=== PATIENT | male | born 1965 | race Caucasian/White ===

== ENCOUNTER 2019-04-20 17:19 | Inpatient (IN) | payer OTHER ==
[~2019-04-20] VITALS: Ht 180.3 cm; Wt 107.5 kg
[2019-04-20] MEDS ORDERED: HYZAAR 50-12.51 EACH (17:29)
[2019-04-20] MEDS ORDERED: SYNTHROID112 MCG (17:30)
--- NOTE | 2019-04-20 17:31 | NUR ---
PTE REFERIDO POR DR RUSSO REFIERE DIFICULTAD RESPIRATORIA Y FIEBRE DESDE 1 SEMANS SE OWEN S/V Y SE UBICA EN AREQA DE OBSERVACION
--- NOTE | 2019-04-20 19:16 | NUR ---
PACIENTE ALERTA Y ORIENTADO EVALUADO POR EL DR. CAPELLAN SE ORIENTA A PACIENTE SOBRE TRATAMIENTO MEDICO SE EXTRAEN MUESTRAS DE VICTOR MANUEL Y SE ADMINISTRAN MEDICAMENTOS SOUMYA ORDEN MEDICA BAJO MEDIDAS ASEPTICAS.
--- NOTE | 2019-04-20 23:07 | NUR ---
SE RECIBE PACIENTE EN CAMA CON MEDIDAS DE SEGURIDAD, LUCE ALERTA CONSCIENTE Y ORIENTADO X3, PRESENTANDO BUEN PATRON RESPIRATORIO. KYRA DE DOLOR AL MOMENTO. IVFLUIDS PATENTES AREA KYRA DE EDEMA Y ENROJECIMIENTO. EN ESPERA DE SER VISTO EN CONSULTA POR MEDICINA INTERNA.
--- NOTE | 2019-04-21 08:04 | NUR ---
SE RECIB EPTE DLE TURNO ANTERIOR, ALERTA Y ORIENTADO X 3 ESFERAS, EN COMPANIA DE FAMILIAR, EN CAMA NIVEL MAS BAJO, GARCIA DE IDENTIFCACION Y BARANDAS ELEVADAS POR PRECAUCION. SE OBSERVA OCN BUEN PATRON RESPIRATORIO Y PIEL TIBIA AL TACTO. IV PATENTE Y KYRA DE EDEMA O ERITEMA CON 0.9% NSS @80ML/HR. PTE PENDIENTE A CONSULTA CON DR RUSSO. SE MANTIENE BAJO OBSERVACION.
== END 2019-04-29 10:34 | disposition home or self-care (01) | DRG 194 ==
LOC: ER 17:19 → SURH 04-21 08:58 → SEC-K 04-21 08:58 → SURH 04-21 17:29
PROVIDERS: ADMIT Internal Medicine Cardiovascular Disease
PROC: 3E0F7GC Introduction of Other Therapeutic Substance into Respiratory Tract, Via Natural or Artificial Opening (ICD-10-PCS; 2019-04-21)
PROC: 8E0ZXY6 Isolation (ICD-10-PCS; 2019-04-21)
PROC: BB24ZZZ Computerized Tomography (CT Scan) of Bilateral Lungs (ICD-10-PCS; principal; 2019-04-22)
PROC: 4A033R1 Measurement of Arterial Saturation, Peripheral, Percutaneous Approach (ICD-10-PCS; 2019-04-26)
DX: J18.1 Lobar pneumonia, unspecified organism (principal); J44.1 Chronic obstructive pulmonary disease with (acute) exacerbation; J45.41 Moderate persistent asthma with (acute) exacerbation; J98.11 Atelectasis; I10 Essential (primary) hypertension; R09.02 Hypoxemia; E03.8 Other specified hypothyroidism; R31.0 Gross hematuria

== ENCOUNTER 2019-06-18 10:18 | Outpatient (CLI) | payer OTHER ==
[~2019-06-18 10:18] MED LIST: HYZAAR 50-12.51 EACH; SYNTHROID112 MCG
== END 2019-06-18 10:49 | disposition home or self-care (01) ==
LOC: SONOGRAMA 10:18
DX: D21.0 Benign neoplasm of connective and other soft tissue of head, face and neck (principal); R05 Cough

== ENCOUNTER 2021-12-14 09:19 | Outpatient (CLI) | payer OTHER | END 2021-12-14 09:23 | disposition home or self-care (01) | LOC: RAD 09:19 | PROVIDERS: ATTEND Internal Medicine Cardiovascular Disease | DX: J11.1 Influenza due to unidentified influenza virus with other respiratory manifestations (principal); J44.9 Chronic obstructive pulmonary disease, unspecified ==

== ENCOUNTER 2021-12-14 10:12 | Outpatient (CLI) | payer OTHER | END 2021-12-14 10:13 | disposition home or self-care (01) | LOC: LAB 10:12 | PROVIDERS: ATTEND Internal Medicine Cardiovascular Disease | DX: J11.1 Influenza due to unidentified influenza virus with other respiratory manifestations (principal); D04.0 Carcinoma in situ of skin of lip ==

== ENCOUNTER → 2024-07-10 07:01 | Outpatient (CLI) | payer OTHER ==
[2024-07-10 07:32] LABS: HEMATOCRIT 48.6 % (39.0-48.0); HEMOGLOBIN 16.9 g/dL (13-16.00); MEAN CELL VOLUME 89.6 fL (80.0-100.00); MEAN CORPUSCULAR HEMOGLOBIN 31.3 pg (27.00-32.0); MEAN CORPUSCULAR HGB CONC 34.9 g/dl (32.0-36.0); PLATELET COUNT 248 K/uL (150-450); RED BLOOD COUNT 5.42 M/uL (4.00-6.00); RED CELL DISTRIBUTION WIDTH 13.7 % (11.5-14.5)
[2024-07-10 07:42] LABS: URINE APPEARANCE Clear; URINE BILIRRUBIN Negative (NEGATIVE); URINE BLOOD Moderate; URINE COLOR Yellow; URINE GLUCOSE Negative (NEGATIVE); URINE KETONE Negative (NEGATIVE); URINE LEUKOCYTE Negative; URINE NITRATE Negative; URINE PROTEIN Negative (NEGATIVE); URINE UROBILINOGEN 0.2 E.U./dl
[2024-07-10 07:46] LABS: URINE BACTERIA 93.2 uL (0.0-1933); URINE EPITHELIAL CELLS 5.7 uL (0.0-38.8); URINE RBC 35.5 uL (0.0-20.8); URINE WBC 13.7 uL (0.0-23.2)
[2024-07-10 08:09] LABS: URINE CAST 0.15 uL (0.0-1.40)
[2024-07-10 08:26] LABS: ALBUMIN 3.8 gm/dL (3.4-5.0); BILIRUBIN TOTAL 0.62 mg/dL (0.3-1.2); CALCIUM 9.2 mg/dL (8.5-10.1); CREATININE SERUM 1.29 mg/dL (0.70-1.30); GFR 57.01; GLOBULINA 3.6 G/DL (2.4-3.5); POTASSIUM 4.48 mEq/L (3.5-5.1); T4 TOTAL 8.09 UG/DL (4.5-12.1); TOTAL PROTEIN 7.4 gm/dL (6.4-8.2); TSH 2.61 uIU/mL (0.358-3.74)
== END | disposition home or self-care (01) ==
LOC: LAB 07:01
PROVIDERS: ATTEND Internal Medicine Cardiovascular Disease
DX: E11.9 Type 2 diabetes mellitus without complications (principal); E03.9 Hypothyroidism, unspecified; E78.2 Mixed hyperlipidemia; I10 Essential (primary) hypertension

== ENCOUNTER 2024-07-16 15:20 | Outpatient (CLI) | payer OTHER | END 2024-07-16 15:42 | disposition home or self-care (01) | LOC: TOM 15:20 | PROVIDERS: ATTEND Internal Medicine Cardiovascular Disease | DX: I10 Essential (primary) hypertension (principal); R51.9 Headache, unspecified ==

== ENCOUNTER 2024-08-13 13:34 | Outpatient (CLI) | payer OTHER ==
[2024-08-13 13:56] LABS: HEMOGLOBIN 16.7 g/dL (13-16.00); MEAN CELL VOLUME 89.9 fL (80.0-100.00); MEAN CORPUSCULAR HEMOGLOBIN 31.2 pg (27.00-32.0); MEAN CORPUSCULAR HGB CONC 34.7 g/dl (32.0-36.0); PLATELET COUNT 236 K/uL (150-450); RED BLOOD COUNT 5.34 M/uL (4.00-6.00); RED CELL DISTRIBUTION WIDTH 13.8 % (11.5-14.5)
[2024-08-13 14:46] LABS: MYCOPLASMA PNEUMONIAE IGM REACTIVE (NO REACTIVE)
== END 2024-08-13 13:35 | disposition home or self-care (01) ==
LOC: LAB 13:34
PROVIDERS: ATTEND Internal Medicine Cardiovascular Disease
DX: J11.1 Influenza due to unidentified influenza virus with other respiratory manifestations (principal); A49.3 Mycoplasma infection, unspecified site; Z20.822 Contact with and (suspected) exposure to COVID-19

== ENCOUNTER 2024-08-30 16:19 | Outpatient (CLI) | payer OTHER ==
[2024-08-30 16:46] LABS: HEMATOCRIT 45.8 % (39.0-48.0); MEAN CELL VOLUME 89.6 fL (80.0-100.00); MEAN CORPUSCULAR HEMOGLOBIN 31.2 pg (27.00-32.0); MEAN CORPUSCULAR HGB CONC 34.9 g/dl (32.0-36.0); PLATELET COUNT 191 K/uL (150-450); RED BLOOD COUNT 5.11 M/uL (4.00-6.00); RED CELL DISTRIBUTION WIDTH 13.6 % (11.5-14.5)
[2024-08-30 16:48] LABS: PH,URINE 5.5 (5.0-8.0); URINE APPEARANCE Clear; URINE BILIRRUBIN Negative (NEGATIVE); URINE BLOOD Large; URINE COLOR Yellow; URINE GLUCOSE Negative (NEGATIVE); URINE KETONE Negative (NEGATIVE); URINE LEUKOCYTE Negative; URINE NITRATE Negative; URINE PROTEIN Trace (NEGATIVE); URINE UROBILINOGEN 0.2 E.U./dl
[2024-08-30 16:50] LABS: URINE BACTERIA 53.8 uL (0.0-1933); URINE EPITHELIAL CELLS 7.5 uL (0.0-38.8); URINE RBC 40.6 uL (0.0-20.8); URINE WBC 3.3 uL (0.0-23.2)
[2024-08-30 17:04] LABS: URINE CAST 0.14 uL (0.0-1.40)
[2024-08-30 17:16] LABS: MYCOPLASMA PNEUMONIAE IGM REACTIVE (NO REACTIVE)
== END 2024-08-30 16:27 | disposition home or self-care (01) ==
LOC: LAB 16:19
PROVIDERS: ATTEND Internal Medicine Cardiovascular Disease
DX: N39.0 Urinary tract infection, site not specified (principal); J11.1 Influenza due to unidentified influenza virus with other respiratory manifestations; A49.3 Mycoplasma infection, unspecified site; Z20.822 Contact with and (suspected) exposure to COVID-19

== ENCOUNTER 2024-12-14 06:51 | Outpatient (CLI) | payer OTHER ==
[2024-12-14 07:27] LABS: PH,URINE 5.5 (5.0-8.0); URINE APPEARANCE Clear; URINE BILIRRUBIN Negative (NEGATIVE); URINE BLOOD Moderate; URINE COLOR Yellow; URINE GLUCOSE Negative (NEGATIVE); URINE KETONE Negative (NEGATIVE); URINE LEUKOCYTE Negative; URINE NITRATE Negative; URINE PROTEIN Negative (NEGATIVE); URINE UROBILINOGEN 0.2 E.U./dl
[2024-12-14 07:29] LABS: HEMATOCRIT 48.5 % (39.0-48.0); HEMOGLOBIN 16.4 g/dL (13-16.00); MEAN CORPUSCULAR HEMOGLOBIN 31.1 pg (27.00-32.0); MEAN CORPUSCULAR HGB CONC 33.8 g/dl (32.0-36.0); PLATELET COUNT 231 K/uL (150-450); RED BLOOD COUNT 5.27 M/uL (4.00-6.00); RED CELL DISTRIBUTION WIDTH 13.9 % (11.5-14.5)
[2024-12-14 07:31] LABS: URINE BACTERIA 6.1 uL (0.0-1933); URINE EPITHELIAL CELLS 4.5 uL (0.0-38.8); URINE RBC 20.3 uL (0.0-20.8); URINE WBC 5.8 uL (0.0-23.2)
[2024-12-14 07:35] LABS: URINE CAST 0.29 uL (0.0-1.40)
[2024-12-14 08:34] LABS: ALBUMIN 3.7 gm/dL (3.4-5.0); BILIRUBIN TOTAL 0.57 mg/dL (0.3-1.2); CHOL HDL RATIO 3.3 (0-5.0); CREATININE SERUM 1.09 mg/dL (0.70-1.30); GFR 69.24; GLOBULINA 3.6 G/DL (2.4-3.5); POTASSIUM 4.01 mEq/L (3.5-5.1); T4 TOTAL 7.6 UG/DL (4.5-12.1); TOTAL PROTEIN 7.3 gm/dL (6.4-8.2); TSH 1.96 uIU/mL (0.358-3.74)
== END 2024-12-14 06:55 | disposition home or self-care (01) ==
LOC: LAB 06:51
PROVIDERS: ATTEND Internal Medicine Cardiovascular Disease
DX: I10 Essential (primary) hypertension (principal); E11.9 Type 2 diabetes mellitus without complications; E03.9 Hypothyroidism, unspecified; E78.2 Mixed hyperlipidemia

== ENCOUNTER 2025-06-25 06:39 | Outpatient (CLI) | payer OTHER ==
[2025-06-25 07:30] LABS: BASO % 1.4 % (0.1-1.2); EOS # 0.42 (0.04-0.54); EOS % 7.5 % (0.7-7.0); LYMPH # 1.45 (1.18-3.74); LYMPH % 25.9 % (19.3-53.1); MEAN PLATELET VOLUME 9.10 fl (9.4-12.4); MONO # 0.55 (0.24-0.82); MONO % 9.8 % (4.7-12.5); NEUT # 3.05 (1.56-6.13); NEUT % 54.7 % (34.0-71.1); RED CELL DISTRIBUTION WIDTH 13.0 % (11.6-14.4)
[2025-06-25 07:46] LABS: URINE APPEARANCE Clear; URINE BILIRRUBIN Negative (NEGATIVE); URINE BLOOD Moderate; URINE COLOR Yellow; URINE GLUCOSE Negative (NEGATIVE); URINE KETONE Negative (NEGATIVE); URINE LEUKOCYTE Negative; URINE NITRATE Negative; URINE PROTEIN Negative (NEGATIVE); URINE UROBILINOGEN 0.2 E.U./dl
[2025-06-25 07:50] LABS: URINE BACTERIA 26.3 uL (0.0-1933); URINE EPITHELIAL CELLS 5.2 uL (0.0-38.8); URINE RBC 21.2 uL (0.0-20.8); URINE WBC 9.6 uL (0.0-23.2)
[2025-06-25 08:05] LABS: ALT/SGPT 42.0 U/L (12-78); AST/SGOT 23.0 U/L (15-37); BILIRUBIN TOTAL 0.67 mg/dL (0.3-1.2); BUN CREA RATIO 14.0 (7.0-25.0); CHOL HDL RATIO 3.4 (0-5.0); CREATININE SERUM 1.24 mg/dL (0.70-1.30); GFR 59.67; GLOBULINA 3.1 G/DL (2.4-3.5); GLUCOSE FASTING 102.0 mg/dL (65-100); HDL 48.0 mg/dl (40-60); LDL 99.0 mg/dl (0-130); OSMOLALITY SERUM 287.0 MOSM/KG (275-295); PROSTATIC SPECIFIC ANTIGEN 0.639 NG/ML (0.010-4.00); T4 TOTAL 7.08 UG/DL (4.5-12.1); TSH 2.03 uIU/mL (0.358-3.74); VLDL 14.0 (0-39)
[2025-06-25 08:19] LABS: URINE CAST 0.14 uL (0.0-1.40)
[2025-06-25 11:39] LABS: T3 TOTAL 1.29 ng/ml (0.846-2.02); VITAMIN D3 25 HYDROXY 30.81 ng/ml (30-120)
== END 2025-06-25 06:44 | disposition home or self-care (01) ==
LOC: LAB 06:39
PROVIDERS: ATTEND Internal Medicine Cardiovascular Disease
DX: E11.9 Type 2 diabetes mellitus without complications (principal); E03.9 Hypothyroidism, unspecified; E78.2 Mixed hyperlipidemia; N40.0 Benign prostatic hyperplasia without lower urinary tract symptoms; I10 Essential (primary) hypertension; E55.9 Vitamin D deficiency, unspecified; M81.0 Age-related osteoporosis without current pathological fracture